=== PATIENT | male | born 1960 | race Caucasian/White ===

== ENCOUNTER → 2019-06-27 11:55 | Outpatient (CLI) | payer OTHER, SELFPAY ==
--- NOTE | 2019-06-27 | DI.US.S_ITS ---
PROCEDURE: US ABDOMEN COMPLETE INDICATIONS: ABNORMAL RESULTS OF LIVER FUNCTION STUDIES TECHNIQUE: Real-time scanning was performed of the abdominal and retroperitoneal organs, with image documentation. COMPARISON: None. FINDINGS: Liver: Liver is normal in size and homogeneous in echotexture. Gallbladder: Nondistended. No stones or sludge. Normal gallbladder or thickness. Negative sonographic Culp's sign. No pericholecystic fluid. Biliary ducts: Intrahepatic bile ducts are non-dilated. Extrahepatic bile duct caliber measures 2 mm. Normal is 6-7 mm or less in diameter, or 10 mm or less post-cholecystectomy. Pancreas: Not well-seen due to overlying bowel gas and body habitus. Spleen: Spleen is normal in size and homogeneous in echotexture. Measures 12.9 cm. Kidneys: Kidneys are normal in size and echotexture. Right kidney measures 10.8 cm long; left kidney measures 11.1 cm long. No hydronephrosis or nephrolithiasis. No solid masses. Right kidney mid/superior pole exophytic hypoechoic cystic lesion measuring 0.8 x 0.6 x 0.7 cm. No internal vascularity. A few internal echoes. Portions of the left kidney are not well-visualized. Aorta: Visualized aorta is normal in caliber at less than 3 cm. proximal aorta is not well-seen. Iliacs: Proximal common iliac arteries are normal in caliber at less than 2.5 cm. IVC: Intrahepatic inferior vena cava is patent. Miscellaneous: No free abdominal fluid. IMPRESSION: 1. Normal sonographic appearance of the liver. No free fluid. 2. No cholecystitis or gallstones. 3. Indeterminate subcentimeter right kidney exophytic lesion. Portions of the left kidney are not well-seen. The pancreas is not well-seen. CT of the abdomen and pelvis with IV contrast would be helpful for further evaluation. Dictated by: Aiden Cabral M.D. on 07/03/2019 at 9:24 Approved by: Aiden Cabral M.D. on 07/03/2019 at 9:30
== END ==
PROVIDERS: Visit Provider Nurse Practitioner Family
DX: R94.5 Abnormal results of liver function studies (principal); N28.9 Disorder of kidney and ureter, unspecified
CPT/HCPCS: 76700

== ENCOUNTER → 2019-09-05 11:41 | Outpatient (CLI) | payer OTHER, SELFPAY ==
--- NOTE | 2019-09-05 | DI.CT.S_ITS ---
PROCEDURE: CT ABDOMEN PELVIS WO CON INDICATIONS: other cystic kidney disease TECHNIQUE: After the administration of oral contrast, 5 mm thick sections acquired from the diaphragms to the symphysis. 5 mm coronal and sagittal reformats were performed. For radiation dose reduction, the following was used: automated exposure control, adjustment of mA and/or kV according to patient size. COMPARISON: [facility], , US ABDOMEN COMPLETE, 06/27/2019, 12:17. FINDINGS: Image quality: Excellent. ABDOMEN: Lung bases: Lung bases are clear. Heart size is enlarged. Solid organs: Liver is normal in size. Gallbladder negative. Pancreas is normal in size. Spleen is normal in size. No adrenal nodules. Both kidneys are normal in size, without hydronephrosis. There is bilateral age unknown or nephric stranding. Nonobstructive bilateral renal calculi are seen, measuring up to 5 mm on the left, and 3 mm on the right. Exophytic lesion involving the right inferior pole measuring approximately 1.5 cm, technically indeterminate in the absence of IV contrast (precluded by renal insufficiency). There is low attenuation measuring 8 Hounsfield units. Peritoneum and bowel: Bowel loops demonstrate normal wall thickness and caliber. No free fluid or air. Incidental colonic diverticulosis. Nodes and vessels: No retroperitoneal or mesenteric adenopathy by size criteria. Aorta and inferior vena cava are normal in size. Miscellaneous: No ventral hernias. PELVIS: Genitourinary: Bladder wall thickness is normal. Miscellaneous: No inguinal hernias or adenopathy. Bones: No suspicious bony lesions. No vertebral body compression fractures. IMPRESSION: Exophytic lesion involving the inferior pole of the right kidney, technically non-specific, especially in the absence of IV contrast. Therefore, given the absence of any relevant prior studies, recommend continued long-term surveillance with ultrasound or CT to document stability. Recommend next examination in 6 months. Bilateral nephrolithiasis without evidence of urinary obstruction. Dictated by: Luís Boyd M.D. on 09/05/2019 at 13:44 Approved by: Luís Boyd M.D. on 09/05/2019 at 13:52
[2019-09-05 12:15] LABS: Estimated Glomerular Filt Rate 27.9 mL/min (>60)
== END ==
PROVIDERS: PCP Specialist; Visit Provider Psychologist Clinical
DX: Q61.8 Other cystic kidney diseases (principal); N20.0 Calculus of kidney; N28.9 Disorder of kidney and ureter, unspecified
CPT/HCPCS: 36415; 74176; 82565